=== PATIENT | female | born 1985 | race Caucasian/White ===

== ENCOUNTER 2017-11-24 17:39 | Emergency (ER) | payer MEDICAID ==
[~2017-11-24] VITALS: Ht 175.3 cm; Wt 72.6 kg
[2017-11-24 17:57] VITALS: Ht 175.3 cm; Wt 72.6 kg
[2017-11-24 20:42] LABS: BASOPHIL % 0.4 % (0-2); PLATELET COUNT 259 x10^3mcL (130-400); RED CELL DISTRIBUTION WIDTH 12.7 % (11.5-14.5)
[2017-11-24 20:50] LABS: CALCIUM 8.4 mg/dL (8.5-10.1); CHLORIDE SERUM 102 mmol/L (98-107); CREATININE SERUM 0.8 mg/dL (0.6-1.0); GFR1 > 60 mL/min; GLUCOSE SERUM 85 mg/dL (74-106); POTASSIUM SERUM 3.6 mmol/L (3.5-5.1); SODIUM SERUM 140 mmol/L (136-145)
[2017-11-24 20:54] LABS: ALBUMIN 3.8 g/dL (3.4-5.0); ALKALINE PHOSPHATASE 72 U/L (46-116); ALT/SGPT 25 U/L (14-59); AMYLASE 44 U/L (25-115); AST/SGOT 52 U/L (15-37); BILIRUBIN TOTAL 0.5 mg/dL (0.20-1.00); LIPASE 78 IU/L (73-393); TOTAL PROTEIN, SERUM 7.8 g/dL (6.4-8.2)
[2017-11-24 23:58] VITALS: BP 111/68
== END 2017-11-24 23:58 | disposition home or self-care (01) ==
LOC: ED 17:39
PROVIDERS: Emergency Medicine
DX: R10.33 Periumbilical pain (principal); R11.0 Nausea; R19.7 Diarrhea, unspecified
CPT/HCPCS: J2270; J2405; J7030

== ENCOUNTER 2019-03-17 23:14 | Emergency (ER) | payer BC ==
[~2019-03-17] VITALS: Ht 175.3 cm; Wt 67.6 kg
[2019-03-17 23:21] VITALS: Ht 175.3 cm; Wt 67.6 kg
[2019-03-18 00:18] VITALS: BP 122/68
== END 2019-03-18 00:18 | disposition home or self-care (01) ==
LOC: ED 23:14
DX: L02.413 Cutaneous abscess of right upper limb (principal)
CPT/HCPCS: J2001

== ENCOUNTER 2019-03-19 22:20 | Emergency (ER) | payer BC ==
[~2019-03-19] VITALS: Ht 175.3 cm; Wt 72.6 kg
[2019-03-19 22:31] VITALS: Ht 175.3 cm; Wt 72.6 kg
[2019-03-19 23:53] VITALS: BP 115/52
== END 2019-03-19 23:53 | disposition home or self-care (01) ==
LOC: ED 22:20
DX: L02.511 Cutaneous abscess of right hand (principal); Z48.01 Encounter for change or removal of surgical wound dressing